=== PATIENT | female | born 1945 ===

== ENCOUNTER 2017-07-11 02:22 | Inpatient (IN) | payer MEDICARE, BC ==
[2017-07-10 15:42] LABS: INR 0.99
[~2017-07-11] VITALS: Ht 162.6 cm; Wt 89.4 kg
[2017-07-11] VITALS (14 sets, daily range): BP systolic 102–160; BP diastolic 62–130
[~2017-07-11 02:22] MED LIST: CETI10CA8 PO; CLON-388 PO; ESCI20TA38 PO; FLUT12HF2 IH; LEVO50TA86 PO; MONT10TA PO; PRED-317 PO; TRIA10.8
[2017-07-11] MEDS ORDERED: fentaNYL CITR 250 MCG/5 ML AMP ONE (11:12)
[2017-07-11] MEDS ORDERED: ONDANSETRON 4 MG/2 ML VIAL ONE (11:15)
[2017-07-11] MEDS ORDERED: PROPOFOL EMUL(*) 10MG/ML 20 ML 20 ML ONE (11:15)
[2017-07-11] MEDS ORDERED: DEXAMETHASONE SOD PHOS 10MG/ML ONE (11:15)
[2017-07-11] MEDS ORDERED: LIDOCAINE MPF 1% 5 ML VIAL ONE (11:15)
[2017-07-11] MEDS ORDERED: ACETAMINOPHEN(*)1000 MG/100 ML 100 ML IVPB ONE (11:17)
[2017-07-11] MEDS ORDERED: SUGAMMADEX SOD 200 MG/2 ML SDV ONE (11:19)
[2017-07-11] MEDS ORDERED: ceFAZolin(*) 2GM/D5W 50ML 50 ML IVPB ONE (11:45)
[2017-07-11] MEDS ORDERED: LIDOCAINE/SOD BICARB 8.4% SYR ID ONE (11:45)
[2017-07-11] MEDS ORDERED: FAMOTIDINE 20 MG TAB PO ONE (11:45)
[2017-07-11] MEDS ORDERED: MIDAZOLAM 2 MG/2 ML VIAL IVP PRN (11:45)
[2017-07-11] MEDS ORDERED: BACITRACIN 50000 UNIT/VIAL 100,000 UNIT in NS 0.9% 3000 ML IRRIGATION BAG 3,000 ML IR ONE (11:45)
[2017-07-11] MEDS ORDERED: NORMOSOL R SOLN(*) 1000 ML BAG 1,000 ML IV PRN (11:45)
[2017-07-11] MEDS ORDERED: HYDROmorphone HCL 2 MG/ML SDV ONE (14:09)
[2017-07-11] MEDS ORDERED: LIDO/EPI 2% MDV 1:100,000 20ML INFIL ONE (14:11)
[2017-07-11] MEDS ORDERED: ROPIVACAINE 0.2% 20 ML VIAL ONE (14:12)
[2017-07-11] MEDS ORDERED: KETAMINE HCL 200 MG/20 ML MDV ONE (15:00)
[2017-07-11] MEDS ORDERED: ROCURONIUM BROM 10 MG/ML 10 ML ONE (15:00)
--- NOTE | 2017-07-11 16:47 | RADIOLOGY IMAGING REPORT ---
[facility] PATIENT NAME: Herlinda Murray : 1945 MR: [id number] V: [id number] EXAM DATE: ORDERING PHYSICIAN: ALLEN PICKERING TECHNOLOGIST: Location: [facility] Patient: Herlinda Murray : 1945 Visit/Account:[id number] Date of Sevice: 07/11/2017 Exam type: SHOULDER 1 VIEW RIGHT History: S/P TOTAL SHOULDER ARTHROPLASTY Comparison: None. Findings: There is a right shoulder arthroplasty that appears in good anatomic alignment on this single AP view IMPRESSION: 1. As above Report Dictated By: Gianna Jameson MD at 07/11/2017 4:43 PM Report E-Signed By: Gianna Jameson MD at 07/11/2017 4:44 PM WSN:[id number]
[2017-07-11] MEDS ORDERED: FLUSH 10 ML SYR IVP PRN (16:50)
[2017-07-11] MEDS ORDERED: BISACODYL 10 MG SUPP PR PRN (16:50)
[2017-07-11] MEDS ORDERED: ZOLPIDEM TARTRATE 5 MG TAB PO PRN (16:50)
[2017-07-11] MEDS ORDERED: MAGNESIUM HYDROXIDE* 30ML UDCP PO PRN (16:50)
[2017-07-11] MEDS ORDERED: MAGNESIUM CITRATE 300 ML BTL PO PRN (16:50)
[2017-07-11] MEDS ORDERED: ONDANSETRON 4 MG/2 ML VIAL IVP PRN (16:50)
[2017-07-11] MEDS ORDERED: LR 1000 ML BAG 1000 ML IV PRN (16:50)
[2017-07-11] MEDS ORDERED: diphenhydrAMINE 25 MG CAP PO PRN (16:50)
[2017-07-11] MEDS ORDERED: diphenhydrAMINE 50 MG/ML VIAL IVP PRN (16:50)
[2017-07-11] MEDS ORDERED: PROMETHAZINE HCL(*) 25 MG SUPP PR PRN (16:50)
[2017-07-11] MEDS ORDERED: LEVO88TA45 PO (17:54)
[2017-07-11] MEDS ORDERED: PRED2.5T6 PO (17:54)
[2017-07-11] MEDS: HYDROmorphone HCL 2 MG/ML SDV IVP PRN ×2 (19:17→23:15)
[2017-07-11] MEDS ORDERED: MONTELUKAST SODIUM 10 MG TAB PO PRN (19:20)
--- NOTE | 2017-07-11 19:23 | Hospitalist Consultation ---
History of Present Illness Requesting Physician Dr. Oakley Reason for Consult Polymyalgia rheumatica History of Present Illness This patient was admitted for shoulder surgery. It is reported that the surgery went well and was without complication. History Problems: (1) PMR (polymyalgia rheumatica) (2) Hypothyroid (3) Asthma (4) Depression Home Meds Reported Medications Levothyroxine Sodium (LEVOTHYROXINE SODIUM) 88 Mcg Tablet, 88 MCG PO QDAY 07/11/17 Prednisone (PREDNISONE) 2.5 Mg Tablet, 7.5 MG PO DAILY 07/11/17 Cetirizine Hcl (ZYRTEC) 10 Mg Capsule, 10 MG PO QDAY, CAPSULE 07/07/17 Montelukast Sodium (SINGULAIR) 10 Mg Tablet, 1 TAB PO PRN, TAB 07/07/17 Fluticasone/Salmeterol (ADVAIR HFA 115-21 MCG INHALER) 12 Gm Hfa.aer.ad, 12 GM IH DAILY 07/07/17 Triamcinolone Acetonide (Nasacort) 10.8 Ml [place], QDAY 07/07/17 Clonazepam (CLONAZEPAM) 0.5 Mg Tab.rapdis, 1 MG PO QDAY, #12 TAB 07/07/17 Escitalopram Oxalate (LEXAPRO) 20 Mg Tablet, 20 MG PO QDAY, TAB 07/07/17 Discontinued Reported Medications Prednisone (Prednisone) 5 Mg Tablet, 7 TAB PO QDAY 07/07/17 Levothyroxine Sodium (LEVOTHYROXINE SODIUM) 50 Mcg Tablet, 0.088 MCG PO QDAY, TAB 07/07/17 Allergies: Coded Allergies: Sulfa (Sulfonamide Antibiotics) (Verified Allergy, Mild, "ITCH INSIDE" , ) grass pollen (Verified Allergy, Mild, "STUFFED SINUSES" , 07/07/17) codeine (Verified Adverse Reaction, Mild, "DIZZINESS" , 07/07/17) Hx Smoking: No Smoking Status: Never Smoker Caffeine Intake: Coffee Caffeine/Cups Per Day: 1 CPD Hx Alcohol Use: Yes (couple drinks a night - vodka) Alcohol Used: Liquor When Quit Alcohol?: One week ago Hx Substance Use Disorder: No Review of Systems All Systems Reviewed/Normal: Yes Exam Vital Signs Vital Signs Date Time Temp Pulse Resp B/P (MAP) Pulse Ox O2 Delivery O2 Flow Rate FiO2 07/11/17 18:59 97.5 71 16 145/90 (108) 91 Nasal Cannula 2.0 Cardiovascular: Regular Rate and Rhythm Respiratory: Clear to Auscultation Assessment and Plan Problems: (1) PMR (polymyalgia rheumatica) Assessment & Plan: She does take chronic prednisone, but hasn't taken it for over a week. We will resume her regular dose. (2) Asthma Assessment & Plan: She is on chronic treatment with Advair and Singulair. (3) Depression Assessment & Plan: She is on chronic treatment with Lexapro. (4) Hypothyroid Assessment & Plan: She is on chronic treatment with Synthroid. Venous Thromboembolism Antithrombotics Is Pt On Any Antithrombotics?: No Exam Sepsis Risk: No Definite Risk SALOMÓN SOUZA DO Jul 11, 2017 19:23
[2017-07-11] MEDS: predniSONE 5 MG TAB PO SCH (19:44)
[2017-07-11] MEDS: ceFAZolin(*) 2GM/D5W 50ML 50 ML IVPB SCH (22:31)
[2017-07-12 03:19] VITALS: BP 140/82
[2017-07-12] MEDS: ceFAZolin(*) 2GM/D5W 50ML 50 ML IVPB SCH (05:46)
[2017-07-12] MEDS ORDERED: [UNRECOGNIZED DRUG - OTHER] INH SCH (06:00)
[2017-07-12] MEDS ORDERED: LEVOTHYROXINE SOD 0.088 MG TAB PO SCH (06:00)
[2017-07-12] MEDS ORDERED: FLUTICASONE INH SCH (06:00)
[2017-07-12 08:11] VITALS: BP 114/56
[2017-07-12] MEDS ORDERED: OXYC-865 PO (08:25)
[2017-07-12] MEDS ORDERED: ESCITALOPRAM OXALATE 10 MG TAB PO SCH (09:00)
[2017-07-12] MEDS ORDERED: [UNRECOGNIZED DRUG - OTHER] IH SCH (09:00)
[2017-07-12] MEDS ORDERED: SALMETEROL IH SCH (09:00)
[2017-07-12] MEDS ORDERED: FLUTICASONE IH SCH (09:00)
--- NOTE | 2017-07-12 09:25 | Hospitalist Progress Note ---
Subjective Progress Notes Subjective No cp/sob. She is requiring some supplementary oxygen. Physical Exam Vital Signs Date Time Temp Pulse Resp B/P (MAP) Pulse Ox O2 Delivery O2 Flow Rate FiO2 07/12/17 08:11 98.7 77 16 114/56 (75) 93 Nasal Cannula 2.0 Intake and Output 07/13/17 07:00 Intake Total 240 ml Balance 240 ml Intake Oral 240 ml General Appearance: Alert, Awake, No Acute Distress Respiratory: Clear to Auscultation Result Diagram: 07/12/17 0523 Assessment and Plan Problems: (1) Status post total shoulder arthroplasty Status: Acute Assessment & Plan: No CV issues. Will defer to Dr. Boone for DVT prophylaxis. (2) Hypoxia Status: Acute Assessment & Plan: This is secondary to recent surgery, narcotics, and [place]' s high elevation. The lungs are clear. There is low clinical suspicion for PE or pneumonia. If the patient requires O2 to go home, then the patient is to follow up with their provider with a copy of the Hospitalist's note and check an O2 requirement in a few days. (3) PMR (polymyalgia rheumatica) Status: Chronic Assessment & Plan: She does take chronic prednisone, but hadn't taken it for over a week prior to surgery. Back on her regular dose. (4) Asthma Status: Chronic Assessment & Plan: She is on chronic treatment with Advair and Singulair. (5) Depression Status: Chronic Assessment & Plan: She is on chronic treatment with Lexapro. (6) Hypothyroid Assessment & Plan: She is on chronic treatment with Synthroid. Exam Sepsis Risk: No Definite Risk Problem Qualifiers (1) Status post total shoulder arthroplasty: Laterality: right Qualified Codes: Z96.611 - Presence of right artificial shoulder joint TORY ARRIAGA MD Jul 12, 2017 09:25
[2017-07-12] MEDS: predniSONE 5 MG TAB PO SCH (09:50)
[2017-07-12 09:59] VITALS: Ht 162.6 cm; Wt 89.4 kg
[2017-07-12 11:52] VITALS: BP 112/73
--- NOTE | 2017-07-12 15:43 | OPERATIVE REPORT 1 ---
EVENT DATE: July 11, 2017 SURGEON: Kapil Boone MD ANESTHESIOLOGIST: Hussain Ghosh MD ANESTHESIA: General. ELECTRONIC SERVICE TECHNICIAN: ELOISA Foster PREOPERATIVE DIAGNOSIS Right shoulder osteoarthritis which is significant and severe. POSTOPERATIVE DIAGNOSIS Right shoulder osteoarthritis which is significant and severe. PROCEDURE PERFORMED Right total shoulder arthroplasty. FINDINGS The patient had a very frail and osteoporotic glenoid, and so we did have to switch to a keeled glenoid, but we were able to complete a total shoulder arthroplasty. ESTIMATED BLOOD LOSS About 250 mL. DRAINS None. COMPLICATIONS None. TOURNIQUET TIME Not applicable. IMPLANTS USED DePuy 48 keeled implant glenoid with cementation, as well as a size 10 stem and body with an eccentric 48 x 18 head pointed superior and posterior. SPECIMENS None. INDICATIONS AND HISTORY This patient is a 71-year-old female who presented to my clinic for evaluation of right shoulder pain and irritation going on for some time. She continued to have pain and irritation despite conservative management. X-rays revealed that she had a flattened humeral head as well as a significant amount of osteophyte and loose body formation, so therefore we talked to her about the implications of this as well as the treatment options. She wanted to go ahead with a right total shoulder arthroplasty in the future. We went over the risks and benefits associated with this. We also talked about how she had posterior subluxation, that she may feel like it is stiff and sore afterwards, and that she may have a loosening of the components over time. She states that she understood that, and after discussion of those risks and benefits, informed consent was obtained at the last clinic visit. DESCRIPTION OF PROCEDURE The patient was brought in the operating room. She and the procedure were both verified. She was placed supine on the operating table and induced and intubated by Anesthesia. The right upper extremity was then prepped and draped in the usual fashion. A timeout was observed verifying the correct patient and procedure. After anesthetizing the skin with lidocaine with epinephrine, I was able to then make a deltopectoral incision through the deltopectoral area and then find the cephalic vein. I then retracted that to the lateral side, and then I was able to go on down to the clavipectoral fascia. Once I did this, I then performed a biceps tenodesis in this area and then cut the biceps. I was then able to peel back the subscapularis without any major difficulty until I got to the inferior osteophytes. Once I got to the inferior osteophytes, I had to carefully dissect all the way around the inferior osteophytes with the flattened head which was difficult to external rotate the head, but we were able to get around the entirety of this area and then dislocate the shoulder using an externally rotated and extended position. I then drilled a hole through the top part of the humerus and then was able to put the standard reamers down this area until we got to a 10 mm reamer. Once we found it to have a 10 mm reamer, we then put on the standard guide from the [employer] system, and then I was able to cut the proximal aspect of the humerus without any major difficulty. Once again, this was very flat through this area , so I did not cut a significant amount off. I then removed a lot of osteophytes through this area and carefully dissected all the way around 360 degrees around the entire aspect of the metaphyseal region of the humerus in order to get all of the osteophytes off. This then created enough space to get to the glenoid. Once I was able to expose the glenoid by putting a Darrach retractor posteriorly and then a retractor anteriorly, I was then able to remove a lot of the labrum and the rest of the biceps tendon where the biceps anchor had been torn. I was then also able to scrape down a little bit of the ridge in the middle portion of the glenoid. Once I did this, I then put in a central drill hole through the central portion of the glenoid, and this was when there was noted to be some very soft bone into this area as it did not take very well, and so therefore, we tried a different reamer. Unfortunately, this continued to have some erosion in this area, but there was still peripheral good contact, and so therefore, I switched to a keeled glenoid. Once I switched to the keeled glenoid, I then used the standard drills and impactions in order to do this and then was able to cement in a 48 Balko Peg Glenoid from the [employer] Unite system without any difficulty. This was then held in place and allowed the cement to harden. There was a little bit of comminution up in the anterior portion of the glenoid, and so this was held in place until the cement hardened to make sure it was in good position. This was then followed by irrigation with copious amounts of saline. We then turned attention back to the humerus. Once back on the humerus, I was then able to take the 10 Brosteotome and hit into this area. I then took a standard trial stem of a 10, followed by a 48 x 18 eccentric humeral head. This was then put just slight posterior and slightly superior from the standard straight up aspect, and this filled in the defects pretty well. She did have a lot of osteophytes back in this area, and they did cover the metaphyseal portion where it had shifted from her longstanding arthritis. This was then found to have good range of motion and excellent motion associated with it, and so therefore we were able to use these as the final components. The stem was then constructed on the back table. I passed drill holes through metaphyseal portion of the lesser tuberosity and passed five sutures through this area in order to repair the subscapularis at the end of the case. I then placed the prosthesis in the arm without any major difficulty. I then relocated it and found it to have good motion associated with it. I then repaired the subscapularis using the five sutures without any major difficulty. Once I was able to get this in there, I was then able to irrigate with copious amounts of saline which we had done throughout the case using pulsatile lavage. This was then followed by closure of the deltopectoral interval with a #2 StrataFix. This was then followed by 2-0 StrataFix in the subcutaneous tissue and a subcuticular running 4-0 Monocryl with the ends buried. It was anesthetized with ropivacaine and then dressed with Steri- Strips and gauze 4 x 4's in a soft dressing. PLAN The patient will remain in a sling. I will have her kind of do light motion associated with this due to the keeled glenoid. I will admit her overnight here at the hospital. TODD
== END 2017-07-12 13:05 | disposition home or self-care (01) | DRG 483 ==
LOC: OR 02:22 → MED 17:25
PROVIDERS: ADMIT Orthopaedic Surgery; ATTEND Orthopaedic Surgery
PROC: 0RRJ0JZ Replacement of Right Shoulder Joint with Synthetic Substitute, Open Approach (ICD-10-PCS; principal; 2017-07-11 13:46)
DX: M19.011 Primary osteoarthritis, right shoulder (principal); J45.990 Exercise induced bronchospasm; M35.3 Polymyalgia rheumatica; R09.02 Hypoxemia; T70.29XA Other effects of high altitude, initial encounter; E03.9 Hypothyroidism, unspecified; F32.9 Major depressive disorder, single episode, unspecified; T40.605A Adverse effect of unspecified narcotics, initial encounter; Y83.8 Other surgical procedures as the cause of abnormal reaction of the patient, or of later complication, without mention of misadventure at the time of the procedure; Y79.3 Surgical instruments, materials and orthopedic devices (including sutures) associated with adverse incidents; Y92.230 Patient room in hospital as the place of occurrence of the external cause; Z88.2 Allergy status to sulfonamides; Z88.8 Allergy status to other drugs, medicaments and biological substances; Z90.710 Acquired absence of both cervix and uterus
CPT/HCPCS: 36415; 85014; 85018; 85610; 86850; 86900; 86901; 97165; J0131; J0690; J1100; J1170; J2001; J2405; J2704; J2795; J3010; J3490; J7512